=== PATIENT | female | born 1955 | race African-American/Black ===

== ENCOUNTER 2021-06-13 16:27 | Inpatient (IN) | payer OTHER ==
[~2021-06-13] VITALS: Ht 162.6 cm; Wt 117.0 kg
--- NOTE | ~2021-06-13 | EMS ---
[place] [id number] [facility] Patient Care Report Name: MELANIE GROVES Room #: 447-P ADM IN M.R.#: [id number] Admission: 06/13/21 Attend Phys: Yogi Maynard MD Discharge: Date of : 59 Report #: [id number] THIS REPORT FOR: //name// Report Transmitted: 06/14/2021 09:49 EMS Care Summary [place], [place]/[facility] Incident [id number] @ 06/13/2021 15:42 Incident Location [address] [place] [address] Patient MELANIE GROVES Female, 65 Years 1955 Patient Address [address] [place] [address] Patient History Hypertension (HTN), Patient Medications Aspirin, Lisinopril, Chief Complaint Right knee pain Disposition Transported No Lights/[place] Reason Fire Transported To [facility] Narrative BL528. Arrived to find patient seated on side of the bed. P28 stated she fell on her way from the bathroom and was unable to get up for 16 hours without assistance. Patient denies hitting her head and is not on blood thinners. 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 Assist pt to cot using stand and pivot method. VS, Transport patient without change in complaint or condition. Report to staff on arrival. Initial Vitals @16:11P: 90,R: 22,BP: 165/91,Pain: 4/10,GCS: 15,SpO2: 96,Revised Trauma: 12, @16:14P: 88,R: 22,BP: 167/93,Pain: 4/10,GCS: 15,SpO2: 98,Revised Trauma: 12, Assessments @16:05MENTAL:Person Oriented,Time Oriented,Place Oriented,Event Oriented,SKIN:No Abnormalities,HEENT:Neck/Airway: Other,Eyes: No Abnormalities,LUNG SOUNDS:ABDOMEN:PELVIS//GI:No Abnormalities,EXTREMITIES:Right Leg: Other,PULSE:Radial: 2+ Normal,NEURO:Other, Impression Extremity Pain Procedures @16:05 ALS Assessment @16:05 BLS Assessment @16:10 Stretcher Response: Unchanged Timeline 15:14,Call Received 15:14,Dispatch Notified 15:42,Dispatched 15:42,En Route 16:00,On Scene 16:05,At Patient 16:05,ALS Assessment, 16:05,BLS Assessment, 16:10,Stretcher,Response: Unchanged 16:11,BP: 165/91 M,PULSE: 90,RR: 22 R,SPO2: 96 Ox,ETCO2: ,BG: ,PAIN: 4,GCS: 15, 16:14,Depart Scene 16:14,BP: 167/93 M,PULSE: 88,RR: 22 R,SPO2: 98 Ox,ETCO2: ,BG: ,PAIN: 4,GCS: 15, 16:17,At Destination 16:40,Call Closed Disclaimer v1.1 Copyright 2020 [employer] This EMS Care Summary contains data elements from the applicable legal record (which may be displayed differently). It is designed to provide pertinent information for the following purposes: continuity of care, clinical quality, and state data reporting. The complete legal record is available to ED staff and administrators of the receiving hospital in [employer]'s Patient Tracker. All data [address] [address] EMS Patient Care Report Name: MELANIE GROVES Room #: 447-P ADM IN M.R.#: [id number] Admission: 06/13/21 Attend Phys: Yogi Maynard MD Discharge: Date of : 59 Report #: [id number] is provided "as is."
--- NOTE | ~2021-06-13 | EMS ---
[place] [id number] EMS Patient Care Report Name: MELANIE GROVES Room #: 447-P ADM IN M.R.#: [id number] Admission: 06/13/21 Attend Phys: Yoig Maynard MD Discharge: Date of : 59 Report #: [id number] THIS REPORT FOR: //name// Report Transmitted: 06/14/2021 13:11 EMS Care Summary [place], [place]/[facility] Incident [id number] @ 06/13/2021 15:42 Incident Location [address] [place] [address] Patient MELANIE GROVES Female, 65 Years 1955 Patient Address [address] [place] [address] Patient History Hypertension (HTN), Patient Medications Aspirin, Lisinopril, Chief Complaint Right knee pain Disposition Transported No Lights/[place] Reason Fire Transported To [facility] Narrative BL528. Arrived to find patient seated on side of the bed. P28 stated she fell on her way from the bathroom and was unable to get up for 16 hours without assistance. Patient denies hitting her head and is not on blood thinners. 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 Assist pt to cot using stand and pivot method. VS, Transport patient without change in complaint or condition. Report to staff on arrival. Initial Vitals @16:11P: 90,R: 22,BP: 165/91,Pain: 4/10,GCS: 15,SpO2: 96,Revised Trauma: 12, @16:14P: 88,R: 22,BP: 167/93,Pain: 4/10,GCS: 15,SpO2: 98,Revised Trauma: 12, Assessments @16:05MENTAL:Person Oriented,Time Oriented,Place Oriented,Event Oriented,SKIN:No Abnormalities,HEENT:Neck/Airway: Other,Eyes: No Abnormalities,LUNG SOUNDS:ABDOMEN:PELVIS//GI:No Abnormalities,EXTREMITIES:Right Leg: Other,PULSE:Radial: 2+ Normal,NEURO:Other, Impression Extremity Pain Procedures @16:05 ALS Assessment @16:05 BLS Assessment @16:10 Stretcher Response: Unchanged Timeline 15:14,Call Received 15:14,Dispatch Notified 15:42,Dispatched 15:42,En Route 16:00,On Scene 16:05,At Patient 16:05,ALS Assessment, 16:05,BLS Assessment, 16:10,Stretcher,Response: Unchanged 16:11,BP: 165/91 M,PULSE: 90,RR: 22 R,SPO2: 96 Ox,ETCO2: ,BG: ,PAIN: 4,GCS: 15, 16:14,Depart Scene 16:14,BP: 167/93 M,PULSE: 88,RR: 22 R,SPO2: 98 Ox,ETCO2: ,BG: ,PAIN: 4,GCS: 15, 16:17,At Destination 16:40,Call Closed Disclaimer v1.1 Copyright 2020 [employer] This EMS Care Summary contains data elements from the applicable legal record (which may be displayed differently). It is designed to provide pertinent information for the following purposes: continuity of care, clinical quality, and state data reporting. The complete legal record is available to ED staff and administrators of the receiving hospital in [employer]'s Patient Tracker. All data [address] [address] EMS Patient Care Report Name: MELANIE GROVES Room #: 447-P ADM IN M.R.#: [id number] Admission: 06/13/21 Attend Phys: Yogi Maynard MD Discharge: Date of : 59 Report #: [id number] is provided "as is."
[2021-06-13 16:28] VITALS: BP 182/93
[2021-06-13 17:38] LABS: CALCIUM 9.3 mg/dL (8.5-10.1); CREATININE 0.7 mg/dL (0.6-1.0); POTASSIUM 4.2 mmol/L (3.5-5.1)
[2021-06-13 17:39] LABS: EOSINOPHILS 0.1 % (0.0-3.0); MCHC 32.8 g/dL (28.0-37.0); RDW 15.7 % (10.5-14.5)
[2021-06-13 17:41] LABS: ABSOLUTE NEUTROPHILS 6.6 thou/uL (1.4-8.2); BASOPHILS 0.4 % (0.0-2.0); HEMATOCRIT 42.5 % (37.0-47.0); LYMPHOCYTES 9.5 % (24.0-44.0); MCH 26.9 pg (26.0-34.0); MONOCYTES 10.7 % (1.0-8.0); POLYS 79.3 % (36.0-66.0); RBC 5.18 mil/uL (4.20-5.00); WBC 10.6 thou/uL (4.0-11.0)
[2021-06-13 17:50] LABS: ALBUMIN 3.5 g/dL (3.4-5.0); TOTAL BILIRUBIN 0.6 mg/dL (0.2-1.0); TOTAL PROTEIN 7.8 g/dL (6.4-8.2)
[2021-06-13 18:13] LABS: PLATELET COUNT 231 thou/uL (150-400)
[2021-06-13] MEDS ORDERED: LISINOPRIL-HCT1 EAC2 PO (20:51)
[2021-06-13] MEDS ORDERED: ZOLPIDEM TARTRA10 MG PO (20:51)
[2021-06-13] MEDS ORDERED: CHILDREN'S ASPI81 M1 PO (20:55)
[2021-06-14 06:39] LABS: URINE BILIRUBIN NEGATIVE (Negative); URINE BLOOD NEGATIVE (Negative); URINE CLARITY CLEAR; URINE COLOR YELLOW; URINE GLUCOSE-RANDOM* NEGATIVE (Negative); URINE KETONES TRACE (Negative); URINE LEUKOCYTES-REFLEX NEGATIVE (Negative); URINE NITRITE-REFLEX NEGATIVE (Negative); URINE PROTEIN (DIPSTICK) NEGATIVE (Negative); URINE SPECIFIC GRAVITY 1.025 (1.005-1.035); URINE UROBILINOGEN 0.2 E.U./dl (0.2-1.0)
[2021-06-14 06:46] LABS: CALCIUM 8.6 mg/dL (8.5-10.1); CREATININE 0.7 mg/dL (0.6-1.0)
[2021-06-14 07:16] VITALS: BP 135/73
--- NOTE | 2021-06-14 07:44 | EKG ---
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 : 1955 Requested By: Diallo Pollack Order Number: [id number] MD: Bear Goel Measurements Intervals [place] Rate: 83 P: -52 MT: 186 QRS: -17 QRSD: 96 T: 9 QT: 371 QTc: 436 Interpretive Statements Sinus or ectopic atrial rhythm Borderline left axis deviation Low voltage, precordial leads Abnormal R-wave progression, early transition Consider anterior infarct No previous ECG available for comparison Electronically Signed On 06-14-2021 7:44:10 RELIEF PHARMACIST by Bear Goel [email or web address] <ELECTRONICALLY SIGNED> By: Bear Goel MD, [facility] 06/14/21 0744 [id number] 40 Bear Goel MD, [facility] /EPI
[2021-06-14 08:07] VITALS: BP 149/86
[2021-06-14 08:14] VITALS: BP 147/86
[2021-06-14 09:02] VITALS: BP 147/86
--- NOTE | 2021-06-14 11:15 | NUR ---
Discussed during los with the attending physician. 1st source up seeing her as well. She already has a walker, she reported she was using her walker when she fell per fiona. Lives at home. Education on private pay for skilled or ltc till she gets medicaid. I do not have money for that so ok thanks. will need transportation home and i will have my brother or sister meet me at the house to let me in through the garage so do not have to do stairs per fiona. [employer] transport setting up.
--- NOTE | 2021-06-14 16:03 | NUR ---
PT TO FLOOR THIS AM 0830, PT TOOK MEDICATION WITHOUT ISSUE, RA, WORKED WITH PT AND OT FALL PRECAUTIONS IN PLACE.
== END 2021-06-14 18:14 | disposition home or self-care (01) | DRG 556 ==
LOC: ER 16:27 → ADMC 19:30 → 4S 06-14 08:07
PROVIDERS: Emergency Medicine; Nurse Practitioner Family; ADMIT Internal Medicine; ATTEND Internal Medicine
DX: M25.561 Pain in right knee (principal); Z68.41 Body mass index [BMI] 40.0-44.9, adult; E66.01 Morbid (severe) obesity due to excess calories; I10 Essential (primary) hypertension; Z79.899 Other long term (current) drug therapy; Z83.3 Family history of diabetes mellitus; Z82.49 Family history of ischemic heart disease and other diseases of the circulatory system; G47.00 Insomnia, unspecified; Z20.822 Contact with and (suspected) exposure to COVID-19
CPT/HCPCS: 10040